=== PATIENT | male | born 1955 | race Caucasian/White ===

== ENCOUNTER 2023-09-08 20:38 | Inpatient (IN) | payer OTHER ==
[~2023-09-08] VITALS: Ht 177.8 cm; Wt 80.7 kg
[2023-09-08] MEDS ORDERED: methylPREDNISolone SOD SUCC 125 MG/2ML VIAL ONE (21:02)
[2023-09-08 21:05] VITALS: O2SAT 94
[2023-09-08] MEDS: methylPREDNISolone SOD SUCC 125 MG/2ML VIAL IV ONE (21:05)
[2023-09-08] MEDS: IV NS 0.9% 1,000 ML BAG IV ONE (21:10)
[2023-09-08] MEDS: IPRATROPIUM NEB FS 0.5 MG/2.5 ML AMPUL.NEB NEB ONE (21:13)
[2023-09-08] MEDS: ALBUTEROL FS 2.5 MG/3 ML VIAL.NEB NEB ONE (21:13)
[2023-09-08 21:18] LABS: BASOPHILS % (AUTO) 0.2 % (0.0-2.0); EOSINOPHILS # (AUTO) 0.3 K/uL (0.0-0.7); EOSINOPHILS % (AUTO) 1.6 % (0.0-6.0); HEMATOCRIT 48 % (39-51); HEMOGLOBIN 15.4 g/dL (13.5-17.5); LYMPHOCYTES % (AUTO) 6.2 % (20.0-44.0); MEAN CORPUSCULAR HEMOGLOBIN 25 PG (26.0-33.0); MEAN CORPUSCULAR HGB CONC 32 g/dl (31.0-36.0); MEAN CORPUSCULAR VOLUME 77 fL (80-96); MONOCYTES # (AUTO) 1.2 K/uL (0.1-1.30); PLATELET COUNT (AUTO) 273 K/uL (150-450); RED BLOOD CELL COUNT(AUTO) 6.28 MIL/uL (4.5-6.0); WHITE BLOOD COUNT (AUTO) 16.5 K/uL (4.3-11.0)
[2023-09-08] MEDS ORDERED: CEFTRIAXONE 1GM BAG (ER ONLY) 50 ML IV ONE (21:27)
[2023-09-08 21:30] LABS: CALCIUM, SERUM 9.6 mg/dL (8.5-10.1); CARBON DIOXIDE 29 mmol/L (21-32); CHLORIDE 99 mmol/L (98-107); GLUCOSE 129 mg/dL (74-106); POTASSIUM 4.1 mmol/L (3.5-5.1); SODIUM SERUM 132 mmol/L (136-145); UREA NITROGEN, BLOOD 22 mg/dL (7-18)
[2023-09-08] MEDS: CEFTRIAXONE 1GM BAG (ER ONLY) 50 ML IV ONE (21:30)
[2023-09-08 21:31] LABS: INR 1.14 (0.91-1.10); PARTIAL THROMBOPLASTIN TIME 29.4 SEC (24.3-34.3); PROTHROMBIN TIME 11.6 SECS (9.2-11.1)
[2023-09-08 21:36] LABS: ALANINE AMINOTRANSFERASE 23 U/L (12-78); ALKALINE PHOSPHATASE 117 U/L (46-116); ASPARTATE AMINOTRANSFERASE 33 U/L (15-37); BILIRUBIN,DIRECT 0.2 mg/dL (0.0-0.2); BILIRUBIN,TOTAL 0.6 mg/dL (0.2-1.0); TOTAL PROTEIN, SERUM 7.9 g/dL (6.4-8.2)
[2023-09-08 21:37] LABS: LACTIC ACID 1.8 mmol/L (0.4-2.0)
[2023-09-08] MEDS ORDERED: AZITHROMYCIN 500 MG VIAL ONE (22:01)
[2023-09-08] MEDS: AZITHROMYCIN 500 MG in IV D5W 250 ML IV ONE (22:10)
[2023-09-08 22:15] VITALS: O2SAT 95
[2023-09-08] MEDS ORDERED: IPRATROPIUM NEB FS 0.5 MG/2.5 ML AMPUL.NEB ONE (22:36)
[2023-09-08] MEDS ORDERED: ALBUTEROL FS 2.5 MG/3 ML VIAL.NEB ONE (22:36)
[2023-09-08 22:54] VITALS: O2SAT 95
[2023-09-08 23:54] VITALS: O2SAT 88
[2023-09-09] VITALS (30 sets, daily range): BP systolic 110–166; BP diastolic 74–109; TEMP 97.3–99.4; O2SAT 83–95
[2023-09-09] MEDS ORDERED: ZOLPIDEM TARTRATE 5 MG TABLET PO PRN
[2023-09-09] MEDS ORDERED: MAG HYDROX/AL HYDROX/SIMETH 30 ML UDC PO PRN
[2023-09-09] MEDS ORDERED: Z GUARD REMEDY 4 OZ OINT TP PRN
[2023-09-09] MEDS ORDERED: MAGNESIUM HYDROXIDE 30 ML UDC PO PRN
[2023-09-09 00:02] LABS: APPEARANCE,URINE CLEAR (CLEAR); BILIRUBIN,URINE 1+ (NEGATIVE); BLOOD, URINE TRACE-INTA Ery/uL (NEGATIVE); COLOR,URINE DARK YELLOW (YELLOW); KETONES,URINE TRACE mg/dL (NEGATIVE); LEUKOCYTE ESTERASE ,URINE NEGATIVE (NEGATIVE); NITRITE, URINE NEGATIVE (NEGATIVE); PROTEIN,URINE 3+ mg/dl (NEGATIVE); UGLUCOSE NEGATIVE (NEGATIVE)
[2023-09-09 00:09] LABS: ADD URINE CULTURE NO; BACTERIA,URINE Rare /HPF (None Seen); SQUAMOUS EPITHELIAL CELL,UR Few /HPF (None Seen); WBC,URINE 0-2 /HPF (0-3)
[2023-09-09] MEDS ORDERED: ROSU20TA2 PO (00:46)
[2023-09-09] MEDS ORDERED: APIX5TAB PO (00:46)
[2023-09-09] MEDS ORDERED: BUPR200T3 PO (00:46)
[2023-09-09] MEDS ORDERED: METO25TA6 PO (00:46)
[2023-09-09] MEDS ORDERED: OMEP1CAP24 PO (00:46)
[2023-09-09] MEDS ORDERED: LATA7.5D EACHEYE (00:46)
[2023-09-09] MEDS ORDERED: IPRA12.9 IH (00:46)
[2023-09-09] MEDS ORDERED: PIRF801T PO (00:46)
[2023-09-09] MEDS: ACETAMINOPHEN 325 MG TABLET PO PRN (02:24)
[2023-09-09] MEDS: ENOXAPARIN SODIUM 40 MG/0.4 ML DISP.SYRIN SQ SCH (02:34)
[2023-09-09 05:11] LABS: BASOPHILS % (AUTO) 0.1 % (0.0-2.0); EOSINOPHILS % (AUTO) 0.1 % (0.0-6.0); HEMATOCRIT 44 % (39-51); HEMOGLOBIN 14.3 g/dL (13.5-17.5); LYMPHOCYTES # (AUTO) 0.8 K/uL (0.8-4.8); LYMPHOCYTES % (AUTO) 5.3 % (20.0-44.0); MEAN CORPUSCULAR HEMOGLOBIN 25 PG (26.0-33.0); MEAN CORPUSCULAR HGB CONC 33 g/dl (31.0-36.0); MEAN CORPUSCULAR VOLUME 77 fL (80-96); MONOCYTES # (AUTO) 0.8 K/uL (0.1-1.30); NEUTROPHILS # (AUTO) 14.2 K/uL (1.8-8.9); NEUTROPHILS % (AUTO) 89.5 % (43.0-81.0); PLATELET COUNT (AUTO) 218 K/uL (150-450); RED BLOOD CELL COUNT(AUTO) 5.63 MIL/uL (4.5-6.0); RED CELL DISTRIBUTION WIDTH 15.8 % (11.5-15.0); WHITE BLOOD COUNT (AUTO) 15.9 K/uL (4.3-11.0)
[2023-09-09 05:34] LABS: ALBUMIN 2.6 g/dL (3.4-5.0); BILIRUBIN,DIRECT 0.2 mg/dL (0.0-0.2); BILIRUBIN,TOTAL 0.5 mg/dL (0.2-1.0); CALCIUM, SERUM 8.8 mg/dL (8.5-10.1); CREATININE 0.9 mg/dL (0.6-1.3); MAGNESIUM 1.8 mg/dL (1.8-2.4); PHOSPHORUS 3.4 mg/dL (2.5-4.9); POTASSIUM 4.4 mmol/L (3.5-5.1); TOTAL PROTEIN, SERUM 7.2 g/dL (6.4-8.2)
[2023-09-09 05:45] LABS: THYROID STIMULATING HORMONE 1.64 uIU/mL (0.358-3.74)
[2023-09-09] MEDS ORDERED: METO50TA16 PO (07:54)
[2023-09-09] MEDS ORDERED: OMEP20CA15 PO (07:54)
[2023-09-09] MEDS: PANTOPRAZOLE 40 MG VIAL IV SCH (08:43)
[2023-09-09] MEDS ORDERED: OMEPRAZOLE 20 MG CAPSULE.DR PO SCH (09:00)
[2023-09-09] MEDS ORDERED: methylPREDNISolone SOD SUCC 125 MG/2ML VIAL IV ONE (09:00)
[2023-09-09] MEDS: methylPREDNISolone SOD SUCC 1,000 MG in IV NS 0.9% 250 ML IV ONE (09:11)
[2023-09-09] MEDS: FUROSEMIDE 40 MG/4 ML VIAL IV SCH (09:12)
[2023-09-09] MEDS: buPROPion 100 MG TABLET PO SCH (09:12)
[2023-09-09] MEDS: IV NS 0.9% 250 ML IV PRN (09:23)
[2023-09-09] MEDS: ONDANSETRON HCL/PF 4 MG/2 ML VIAL IVP PRN (10:21)
[2023-09-09] MEDS: APIXABAN 5 MG TABLET PO SCH (17:01)
[2023-09-09] MEDS: AZITHROMYCIN 500 MG in IV D5W 250 ML IV SCH (20:21)
[2023-09-09] MEDS: CEFTRIAXONE 1 G in IV D5W 50 ML IV SCH (21:48)
[2023-09-09] MEDS: LATANOPROST EYE DROP 0.005% 2.5 ML BOTTLE EACHEYE SCH (21:50)
[2023-09-09] MEDS: ATORVASTATIN 40 MG TABLET PO SCH (22:57)
[2023-09-09] MEDS: ALPRAZOLAM 0.25 MG TABLET PO PRN (23:58)
[2023-09-10] VITALS (34 sets, daily range): BP systolic 60–169; BP diastolic 48–121; TEMP 97.5–99; O2SAT 69–100
[2023-09-10 05:09] LABS: BASOPHILS # (AUTO) 0.1 K/uL (0.0-0.2); BASOPHILS % (AUTO) 0.4 % (0.0-2.0); HEMATOCRIT 47 % (39-51); HEMOGLOBIN 15.3 g/dL (13.5-17.5); LYMPHOCYTES # (AUTO) 0.9 K/uL (0.8-4.8); LYMPHOCYTES % (AUTO) 4.6 % (20.0-44.0); MEAN CORPUSCULAR HEMOGLOBIN 25 PG (26.0-33.0); MEAN CORPUSCULAR HGB CONC 33 g/dl (31.0-36.0); MEAN CORPUSCULAR VOLUME 78 fL (80-96); MONOCYTES % (AUTO) 5.1 % (2.0-12.0); NEUTROPHILS # (AUTO) 17.9 K/uL (1.8-8.9); NEUTROPHILS % (AUTO) 89.9 % (43.0-81.0); PLATELET COUNT (AUTO) 246 K/uL (150-450); RED BLOOD CELL COUNT(AUTO) 6.02 MIL/uL (4.5-6.0); RED CELL DISTRIBUTION WIDTH 15.7 % (11.5-15.0); WHITE BLOOD COUNT (AUTO) 19.9 K/uL (4.3-11.0)
[2023-09-10 05:23] LABS: ALBUMIN 2.8 g/dL (3.4-5.0); BILIRUBIN,TOTAL 0.4 mg/dL (0.2-1.0); CALCIUM, SERUM 9.5 mg/dL (8.5-10.1); CREATININE 1.2 mg/dL (0.6-1.3); MAGNESIUM 2.1 mg/dL (1.8-2.4); PHOSPHORUS 4.4 mg/dL (2.5-4.9); POTASSIUM 3.8 mmol/L (3.5-5.1); TOTAL PROTEIN, SERUM 8.1 g/dL (6.4-8.2)
[2023-09-10] MEDS: methylPREDNISolone SOD SUCC 1,000 MG in IV NS 0.9% 250 ML IV SCH (11:26)
[2023-09-10] MEDS: LEVALBUTEROL HCL NEB 1.25 MG/0.5 ML VIAL.NEB NEB PRN (16:48)
[2023-09-10] MEDS: hydrALAZINE HCL IV 20 MG VIAL IV PRN (17:05)
[2023-09-10] MEDS: PROPOFOL 100 ML IV PRN (18:10)
[2023-09-10] MEDS: NOREPINEPHRINE 8MG/250ML RTU 250 ML IV ONE (22:11)
[2023-09-10] MEDS: NOREPINEPHRINE 8 MG in IV D5W 242 ML IV PRN (22:11)
[2023-09-10] MEDS: PHENYLEPHRINE 50 MG in IV NS 0.9% 245 ML IV PRN (22:24)
[2023-09-10] MEDS: PHENYLEPHRINE 10 MG/ML VIAL ONE (22:39)
[2023-09-11] VITALS (99 sets, daily range): BP systolic 70–140; BP diastolic 32–103; TEMP 98.5–99.8; O2SAT 93–100
[2023-09-11] MEDS: PHENYLEPHRINE 10 MG/ML VIAL ONE ×2 (01:07→04:41)
[2023-09-11 05:08] LABS: BASOPHILS % (AUTO) 0.1 % (0.0-2.0); EOSINOPHILS % (AUTO) 0.1 % (0.0-6.0); HEMATOCRIT 49 % (39-51); HEMOGLOBIN 15.4 g/dL (13.5-17.5); LYMPHOCYTES # (AUTO) 1.2 K/uL (0.8-4.8); LYMPHOCYTES % (AUTO) 6.4 % (20.0-44.0); MEAN CORPUSCULAR HEMOGLOBIN 25 PG (26.0-33.0); MEAN CORPUSCULAR HGB CONC 32 g/dl (31.0-36.0); MEAN CORPUSCULAR VOLUME 80 fL (80-96); MONOCYTES # (AUTO) 1.7 K/uL (0.1-1.30); NEUTROPHILS # (AUTO) 15.5 K/uL (1.8-8.9); NEUTROPHILS % (AUTO) 84.4 % (43.0-81.0); PLATELET COUNT (AUTO) 205 K/uL (150-450); RED BLOOD CELL COUNT(AUTO) 6.07 MIL/uL (4.5-6.0); RED CELL DISTRIBUTION WIDTH 16.4 % (11.5-15.0); WHITE BLOOD COUNT (AUTO) 18.4 K/uL (4.3-11.0)
[2023-09-11] MEDS: PHENYLEPHRINE 100 MG in IV NS 0.9% 240 ML IV PRN (08:31)
[2023-09-11 09:33] LABS: CALCIUM, SERUM 8.5 mg/dL (8.5-10.1); CREATININE 3.3 mg/dL (0.6-1.3); POTASSIUM 5.8 mmol/L (3.5-5.1)
[2023-09-11] MEDS ORDERED: PROPOFOL 1,000 MG/100 ML BOTTLE IV ONE (09:41)
[2023-09-11] MEDS ORDERED: PROPOFOL 200 MG/20 ML VIAL IV ONE (09:41)
[2023-09-11 10:11] LABS: LYMPHOCYTES % (MANUAL) 7 % (16-48); MONOCYTES % (MANUAL) 10 % (0-11.0); NEUTROPHILS % (MANUAL) 83 (42-76); PLATELET ESTIMATE ADEQUATE
[2023-09-11 10:12] LABS: ANISOCYTOSIS 1+
[2023-09-11] MEDS: Sodium Bicarbonate 100 MEQ in IV D5 / 0.2% NACL 1,000 ML IV SCH (10:38)
[2023-09-12] VITALS (102 sets, daily range): BP systolic 79–133; BP diastolic 34–92; TEMP 98–99; O2SAT 88–99
[2023-09-12] MEDS: MIDAZOLAM HCL 100 MG in IV NS 0.9% 80 ML IV PRN (08:57)
[2023-09-12] MEDS: FENTANYL CITRAT IV 2,500 MCG in IV NS 0.9% 200 ML IV PRN ×2 (08:59→12:34)
[2023-09-12 09:45] LABS: ABG BASE EXCESS -1.4 mmol/L (-2.0-2.0); ABG OXYGEN SATURATION 93.9 % (92.0-98.5); ABG PCO2 48.3 mmHg (35.0-45.0); ABG PH 7.332 (7.340-7.440); ABG PO2 78.2 mmHg (75.0-100.0); ABG TOTAL HEMOGLOBIN 14.9 G/dL (14.0-18.0); AaDO2 441.5 mmHg; COHb 1.1 % (0.5-1.5); MetHb 0.1 % (0.0-1.5); O2Hb 92.8 % (94.0-97.0); SITE, ABG Right Radial
[2023-09-12 14:46] LABS: CALCIUM, SERUM 6.3 mg/dL (8.5-10.1); CREATININE 5.6 mg/dL (0.6-1.3)
[2023-09-12 15:06] LABS: POTASSIUM 6.4 mmol/L (3.5-5.1)
[2023-09-12 20:45] LABS: CALCIUM, SERUM 6.5 mg/dL (8.5-10.1); CREATININE 4.1 mg/dL (0.6-1.3); POTASSIUM 5.8 mmol/L (3.5-5.1)
[2023-09-12 23:14] LABS: ABG BASE EXCESS -8.3 mmol/L (-2.0-2.0); ABG OXYGEN SATURATION 90.4 % (92.0-98.5); ABG PCO2 74.1 mmHg (35.0-45.0); ABG PH 7.108 (7.340-7.440); ABG PO2 77.4 mmHg (75.0-100.0); ABG TOTAL HEMOGLOBIN 15.2 G/dL (14.0-18.0); AaDO2 488.4 mmHg; COHb 1.3 % (0.5-1.5); MetHb 0.1 % (0.0-1.5); O2Hb 89.1 % (94.0-97.0); PEEP,BG 12 cm H2O; SITE, ABG Right Radial; VENT MODE, BG AC28 BT500 FIO2 90 PEEP+1; VT, ABG 500 mL
[2023-09-13] VITALS (103 sets, daily range): BP systolic 50–144; BP diastolic 15–112; TEMP 98.3–99.3; O2SAT 90–100
[2023-09-13 04:49] LABS: BASOPHILS % (AUTO) 0.1 % (0.0-2.0); EOSINOPHILS % (AUTO) 0.1 % (0.0-6.0); HEMATOCRIT 43 % (39-51); HEMOGLOBIN 13.7 g/dL (13.5-17.5); LYMPHOCYTES # (AUTO) 1.4 K/uL (0.8-4.8); LYMPHOCYTES % (AUTO) 6.6 % (20.0-44.0); MEAN CORPUSCULAR HEMOGLOBIN 26 PG (26.0-33.0); MEAN CORPUSCULAR HGB CONC 32 g/dl (31.0-36.0); MEAN CORPUSCULAR VOLUME 80 fL (80-96); MONOCYTES # (AUTO) 1.1 K/uL (0.1-1.30); MONOCYTES % (AUTO) 5.4 % (2.0-12.0); NEUTROPHILS # (AUTO) 18.2 K/uL (1.8-8.9); NEUTROPHILS % (AUTO) 87.8 % (43.0-81.0); PLATELET COUNT (AUTO) 145 K/uL (150-450); RED BLOOD CELL COUNT(AUTO) 5.35 MIL/uL (4.5-6.0); RED CELL DISTRIBUTION WIDTH 16.3 % (11.5-15.0); WHITE BLOOD COUNT (AUTO) 20.8 K/uL (4.3-11.0)
[2023-09-13 05:19] LABS: CALCIUM, SERUM 6.1 mg/dL (8.5-10.1); CREATININE 5.3 mg/dL (0.6-1.3)
[2023-09-13 05:26] LABS: POTASSIUM 6.8 mmol/L (3.5-5.1)
[2023-09-13 05:27] LABS: PHOSPHORUS 14.2 mg/dL (2.5-4.9)
[2023-09-13] MEDS: DILTIAZEM HCL 50 MG IV IV ONE (05:34)
[2023-09-13] MEDS: DEXTROSE 50%-WATER 50 ML DISP.SYRIN IVP ONE (05:59)
[2023-09-13] MEDS: INSULIN REGULAR, HUMAN 100 UNIT/ML 10 ML VIAL IV ONE (06:02)
[2023-09-13] MEDS: AMIODARONE 150 MG in IV D5W 100 ML IV ONE (08:33)
[2023-09-13 08:43] LABS: BASOPHILS % (AUTO) 0.2 % (0.0-2.0); HEMATOCRIT 41 % (39-51); HEMOGLOBIN 13.1 g/dL (13.5-17.5); LYMPHOCYTES # (AUTO) 1.4 K/uL (0.8-4.8); LYMPHOCYTES % (AUTO) 7.8 % (20.0-44.0); MEAN CORPUSCULAR HEMOGLOBIN 25 PG (26.0-33.0); MEAN CORPUSCULAR HGB CONC 32 g/dl (31.0-36.0); MEAN CORPUSCULAR VOLUME 80 fL (80-96); MONOCYTES # (AUTO) 0.8 K/uL (0.1-1.30); MONOCYTES % (AUTO) 4.5 % (2.0-12.0); NEUTROPHILS # (AUTO) 15.2 K/uL (1.8-8.9); NEUTROPHILS % (AUTO) 87.5 % (43.0-81.0); PLATELET COUNT (AUTO) 115 K/uL (150-450); RED BLOOD CELL COUNT(AUTO) 5.16 MIL/uL (4.5-6.0); RED CELL DISTRIBUTION WIDTH 15.9 % (11.5-15.0); WHITE BLOOD COUNT (AUTO) 17.3 K/uL (4.3-11.0)
[2023-09-13] MEDS: AMIODARONE 450 MG in IV D5W 241 ML IV PRN (08:45)
[2023-09-13 08:50] LABS: CREATININE 6.2 mg/dL (0.6-1.3)
[2023-09-13 09:06] LABS: ALBUMIN 1.9 g/dL (3.4-5.0); ALKALINE PHOSPHATASE 309 U/L (46-116); BILIRUBIN,TOTAL 1.1 mg/dL (0.2-1.0); CARBON DIOXIDE 23 mmol/L (21-32); CHLORIDE 91 mmol/L (98-107); CREATININE 6.1 mg/dL (0.6-1.3); GLUCOSE 229 mg/dL (74-106); SODIUM SERUM 133 mmol/L (136-145); TOTAL PROTEIN, SERUM 5.6 g/dL (6.4-8.2); URIC ACID 14.3 mg/dL (2.6-7.2)
[2023-09-13 09:22] LABS: ALANINE AMINOTRANSFERASE 4707 U/L (12-78); ASPARTATE AMINOTRANSFERASE > 1000 U/L (15-37)
[2023-09-13 09:45] LABS: POTASSIUM 7.1 mmol/L (3.5-5.1)
[2023-09-13 09:46] LABS: CALCIUM, SERUM 5.6 mg/dL (8.5-10.1); PHOSPHORUS 15.5 mg/dL (2.5-4.9); UREA NITROGEN, BLOOD 87 mg/dL (7-18)
[2023-09-13] MEDS: Sodium Bicarbonate 150 MEQ in IV D5 / 0.2% NACL 1,000 ML IV SCH (10:15)
[2023-09-13] MEDS: methylPREDNISolone SOD SUCC 125 MG/2ML VIAL IV SCH (10:19)
[2023-09-13] MEDS: SEVELAMER CARBONATE 800 MG POWD.PACK GT SCH (10:20)
[2023-09-13] MEDS: MEROPENEM 1 G in IV NS 0.9% 100 ML IV SCH (11:28)
[2023-09-13 14:12] LABS: HEPATITIS B SURFACE AB Non Reactive (.)
[2023-09-13] MEDS: NOREPINEPHRINE 8 MG in IV D5W 242 ML IV PRN (15:45)
[2023-09-14] VITALS (39 sets, daily range): BP systolic 63–104; BP diastolic 25–63; TEMP 98.3–98.9; O2SAT 93–95
[2023-09-14 05:13] LABS: BASOPHILS # (AUTO) 0.1 K/uL (0.0-0.2); BASOPHILS % (AUTO) 0.2 % (0.0-2.0); EOSINOPHILS # (AUTO) 0.2 K/uL (0.0-0.7); EOSINOPHILS % (AUTO) 0.9 % (0.0-6.0); HEMATOCRIT 37 % (39-51); HEMOGLOBIN 11.5 g/dL (13.5-17.5); LYMPHOCYTES # (AUTO) 1.2 K/uL (0.8-4.8); LYMPHOCYTES % (AUTO) 5.6 % (20.0-44.0); MEAN CORPUSCULAR HEMOGLOBIN 26 PG (26.0-33.0); MEAN CORPUSCULAR HGB CONC 31 g/dl (31.0-36.0); MEAN CORPUSCULAR VOLUME 81 fL (80-96); MONOCYTES % (AUTO) 0.2 % (2.0-12.0); NEUTROPHILS # (AUTO) 20.7 K/uL (1.8-8.9); NEUTROPHILS % (AUTO) 93.1 % (43.0-81.0); PLATELET COUNT (AUTO) 126 K/uL (150-450); RED BLOOD CELL COUNT(AUTO) 4.52 MIL/uL (4.5-6.0); RED CELL DISTRIBUTION WIDTH 16.7 % (11.5-15.0); WHITE BLOOD COUNT (AUTO) 22.2 K/uL (4.3-11.0)
[2023-09-14 05:27] LABS: ALANINE AMINOTRANSFERASE 4479 U/L (12-78); ALKALINE PHOSPHATASE 362 U/L (46-116); ASPARTATE AMINOTRANSFERASE < 5 U/L (15-37); BILIRUBIN,DIRECT 0.8 mg/dL (0.0-0.2); BILIRUBIN,TOTAL 1.5 mg/dL (0.2-1.0); CARBON DIOXIDE 20 mmol/L (21-32); CHLORIDE 90 mmol/L (98-107); CREATININE 5.9 mg/dL (0.6-1.3); MAGNESIUM 2.9 mg/dL (1.8-2.4); SODIUM SERUM 132 mmol/L (136-145); TOTAL PROTEIN, SERUM 4.4 g/dL (6.4-8.2); UREA NITROGEN, BLOOD 70 mg/dL (7-18)
[2023-09-14 05:51] LABS: GLUCOSE 50 mg/dL (74-106)
[2023-09-14 05:53] LABS: POTASSIUM 7.8 mmol/L (3.5-5.1)
[2023-09-14 05:54] LABS: ALBUMIN 1.4 g/dL (3.4-5.0); CALCIUM, SERUM 5.5 mg/dL (8.5-10.1)
[2023-09-14] MEDS: Calcium Gluconate 0.465 MEQ/ML VIAL IV STA (06:54)
== END 2023-09-14 08:23 | DRG 208 ==
LOC: ER 20:42 → ICU 23:55
PROVIDERS: ADMIT Nurse Practitioner Family; ATTEND Nurse Practitioner Family
PROC: 5A09457 Assistance with Respiratory Ventilation, 24-96 Consecutive Hours, Continuous Positive Airway Pressure (ICD-10-PCS; 2023-09-09)
PROC: 5A1945Z Respiratory Ventilation, 24-96 Consecutive Hours (ICD-10-PCS; 2023-09-10)
PROC: 0BH18EZ Insertion of Endotracheal Airway into Trachea, Via Natural or Artificial Opening Endoscopic (ICD-10-PCS; 2023-09-10)
PROC: 05HM33Z Insertion of Infusion Device into Right Internal Jugular Vein, Percutaneous Approach (ICD-10-PCS; principal; 2023-09-11)
PROC: B543ZZA Ultrasonography of Right Jugular Veins, Guidance (ICD-10-PCS; 2023-09-11)
PROC: 5A1D70Z Performance of Urinary Filtration, Intermittent, Less than 6 Hours Per Day (ICD-10-PCS; 2023-09-11)
PROC: 02HV33Z Insertion of Infusion Device into Superior Vena Cava, Percutaneous Approach (ICD-10-PCS; 2023-09-13)
PROC: B548ZZA Ultrasonography of Superior Vena Cava, Guidance (ICD-10-PCS; 2023-09-13)
PROC: 5A2204Z Restoration of Cardiac Rhythm, Single (ICD-10-PCS; 2023-09-13)
DX: J84.10 Pulmonary fibrosis, unspecified (principal); J96.21 Acute and chronic respiratory failure with hypoxia; N17.0 Acute kidney failure with tubular necrosis; E88.3 Tumor lysis syndrome; E87.1 Hypo-osmolality and hyponatremia; I13.0 Hypertensive heart and chronic kidney disease with heart failure and stage 1 through stage 4 chronic kidney disease, or unspecified chronic kidney disease; R57.9 Shock, unspecified; J81.1 Chronic pulmonary edema; R65.10 Systemic inflammatory response syndrome (SIRS) of non-infectious origin without acute organ dysfunction; I47.10 Supraventricular tachycardia, unspecified; J93.83 Other pneumothorax; I48.91 Unspecified atrial fibrillation; I50.9 Heart failure, unspecified; N18.9 Chronic kidney disease, unspecified; E03.9 Hypothyroidism, unspecified; E83.39 Other disorders of phosphorus metabolism; E87.5 Hyperkalemia; E88.09 Other disorders of plasma-protein metabolism, not elsewhere classified; Z79.01 Long term (current) use of anticoagulants; F39 Unspecified mood [affective] disorder; D72.828 Other elevated white blood cell count; Z20.822 Contact with and (suspected) exposure to COVID-19; Z66 Do not resuscitate
CPT/HCPCS: 31720; 36415; 36569; 36600; 71045-TC; 76700-TC; 80048-TC; 80053-TC; 80076-TC; 81001; 82565-TC; 82803-TC; 82962-TC; 83605-TC; 83615-TC; 83735-TC; 83880; 84100-TC; 84443-TC; 84478-TC; 84484-TC; 84550-TC; 85025-TC; 85730-TC; 86706; 87040-TC; 87081-TC; 87086-TC; 87340; 90935-TC; 93307-TC; 94002-TC; 94003-TC; 94760-TC; 94762-TC; 94799-TC; 99082-TC; A4223; G0378; J0282; J0360; J0456; J0610; J0696; J1650; J1815; J1940; J2185; J2250; J2405; J2470; J2704; J2919; J3010; J3490; J7030; J7050; J7060